=== PATIENT | male | born 1975 | race Caucasian/White ===

== ENCOUNTER 2017-01-01 08:10 | Emergency (ER) | payer MEDICAID, OTHER ==
[~2017-01-01] VITALS: Ht 167.6 cm; Wt 66.0 kg
[2017-01-01 08:14] VITALS: Ht 167.6 cm; Wt 66.0 kg
--- NOTE | 2017-01-01 09:14 | RADRPT ---
PROCEDURE: Chest x-ray CLINICAL INDICATION: Pain. TECHNIQUE: Two views: Frontal and lateral. COMPARISON: None FINDINGS: The cardiac silhouette is normal. No infiltrates are noted. The hilar regions are unremarkable. No pneumothorax or pleural effusions are visualized. 3 mm granuloma in the right upper lobe is noted. IMPRESSION: 1. No active cardiopulmonary changes. 2. Old granulomatous disease. RPTAT: HH .Dada Madrigal MD, MD Date Time Electronically viewed and signed by .Dada Madrigal MD, on 01/01/2017 09:14 .G/
--- NOTE | 2017-01-01 09:17 | ERD ---
ER Documentation Chief Complaint Date/Time DATE: 01/01/17 TIME: 09:16 Chief Complaint pt c/o cough and feeling sob x 1 wk, hx asthma HPI This is a 41-year-old male with a history of asthma presenting to the emergency room complaining of cough, shortness of breath, chest pain, nasal congestion for the past few days. Patient denies any fevers. He denies taking any medications. Patient denies any drug use or alcohol use. Patient states that the chest pain is localized in the center, it is nonradiating and he rates it mild in severity.He denies recent traveling, recent surgeries. ROS All systems reviewed and are negative except as per history of present illness. Medications Home Meds Active Scripts Benzonatate* (Tessalon Perle*) 100 Mg Capsule, 100 MG PO TID, #20 CAP Prov:RONALDO WEAVER PA-C 01/01/17 Albuterol Sulfate* (Ventolin HFA*) 18 Gm Hfa.aer.ad, 2 PUFF INHALATION Q4H, #1 INHALER Prov:RONALDO WEAVER PA-C 01/01/17 Ibuprofen* (Ibuprofen*) 600 Mg Tablet, 600 MG PO Q6H Y for PAIN, #30 TAB Prov:RONALDO WEAVER PA-C 01/01/17 Allergies Allergies: Coded Allergies: No Known Allergy (Unverified , 01/01/17) PMhx/Soc Hx Respiratory Disorders: Yes (ASTHMA) Hx Alcohol Use: Yes (OCCASIONALLY) Hx Substance Use: No Hx Tobacco Use: No Smoking Status: Never smoker Physical Exam Vitals Vital Signs Date Time Temp Pulse Resp B/P Pulse Ox O2 Delivery O2 Flow Rate FiO2 01/01/17 10:40 98.2 98 20 128/80 96 Room Air 01/01/17 08:14 98.1 140 20 133/84 95 Physical Exam GENERAL: well-developed/well-nourished, in no apparent distress, non-toxic appearing HEAD: NC/AT, no swelling noted in frontal or maxillary areas EARS: bilateral tympanic membrane is intact without erythema or effusion NARES: congested THROAT: oropharynx non-erythematous without exudates, no tonsil enlargement EYES: Conjunctiva normal NECK: Supple, no lymphadenopathy PULM: CTA bilaterally, no rales, rhonchi, or wheezing heard CV: Normal S1S2, tachycardia, good capillary refill GI: Soft, non-distended, normal bowel sounds, non-tender BACK: No midline tenderness, no masses EXT No clubbing, cyanosis, or edema NEURO: Alert and Orientated SKIN: Intact, normal turgor PSYCH: Normal mood and mentation Result Diagram: 01/01/17 0859 01/01/17 0859 Results 24 hrs Laboratory Tests Test 01/01/17 08:59 Alanine Aminotransferase (ALT/SGPT) 57IU/L Albumin 4.5g/dl Albumin/Globulin Ratio 1.32 Alkaline Phosphatase 127IU/L Anion Gap 19 Aspartate Amino Transf (AST/SGOT) 85IU/L Basophils # 0.110^3/ul Basophils % 0.9% Blood Urea Nitrogen 10mg/dl Calcium Level 8.9mg/dl Carbon Dioxide Level 27mmol/L Chloride Level 98mmol/L Creatinine 0.62mg/dl D-Dimer < 220.00ng/ml D-Dimer Comment Direct Bilirubin 0.00mg/dl Eosinophils # 0.810^3/ul Eosinophils % 12.6% Globulin 3.40g/dl Glucose Level 93mg/dl Hematocrit 43.5% Hemoglobin 15.3g/dl Indirect Bilirubin 1.5mg/dl Lipase 132U/L Lymphocytes # 1.210^3/ul Lymphocytes % 18.8% Mean Corpuscular Hemoglobin 32.5pg Mean Corpuscular Hemoglobin Concent 35.2g/dl Mean Corpuscular Volume 92.4fl Mean Platelet Volume 9.4fl Monocytes # 0.410^3/ul Monocytes % 6.4% Neutrophils # 4.010^3/ul Neutrophils % 61.0% Nucleated Red Blood Cells # 0.010^3/ul Nucleated Red Blood Cells % 0.0/100WBC Platelet Count 97088^3/UL Potassium Level 3.9mmol/L Red Blood Count 4.7110^6/ul Red Cell Distribution Width 11.9% Sodium Level 140mmol/L Total Bilirubin 1.5mg/dl Total Protein 7.9g/dl Troponin I < 0.012ng/ml White Blood Count 6.610^3/ul PROCEDURE: Chest x-ray CLINICAL INDICATION: Pain. TECHNIQUE: Two views: Frontal and lateral. COMPARISON: None FINDINGS: The cardiac silhouette is normal. No infiltrates are noted. The hilar regions are unremarkable. No pneumothorax or pleural effusions are visualized. 3 mm granuloma in the right upper lobe is noted. IMPRESSION: 1. No active cardiopulmonary changes. 2. Old granulomatous disease. RPTAT: HH .Dada Madrigal MD, MD Date Time Electronically viewed and signed by .Dada Madrigal MD, on 01/01/2017 09: 14 .G/ CC: RONALDO WEAVER PA-C Procedures/[facility] This is a 41-year-old male with a history of asthma presenting to the emergency room complaining of cough, shortness of breath, chest pain for the past few days. My differentials include but not limited to viral upper respiratory illness, asthma exacerbation, anxiety, and other acute cardiopulmonary conditions. On examination patient appeared anxious, patient's lungs were clear to auscultation bilaterally, there was no evidence of respiratory distress. Patient did have evidence of sinus tachycardia. No wheezing on examination. Lab work was done in the ED. CBC did not show any evidence of leukocytosis or anemia. CMP was unremarkable for any significant electrolyte, liver or renal abnormalities. Troponin was negative. D-dimer was unremarkable. I will low suspicion for ACS and pulmonary embolism. Chest x- ray did not show any evidence of pneumonia, pleural effusion or pneumothorax. The radiologist stated that there is old granulomatous disease, I have discussed with the patient that he needs to follow-up with his primary care physician for further management regarding diagnostic testing. An EKG was done in the ER and was unremarkable for acute ischemia or STEMI, patient did have sinus tachycardia. Patient is suitable to follow-up with primary care physician , he is to return to the ER for any worsening signs or symptoms. He understands and agrees with this plan CXR read by radiologist: 1. No active cardiopulmonary changes. 2. Old granulomatous disease. EKG: read and signed off by myself and Rate/Rhythm: Sinus tachycardia at 116bpm QRS, ST, T-waves: No changes consistent w/ acute ischemia Impression: No evidence of ischemia or arrhythmia Prescription for Tessalon Perles, ibuprofen and Ventolin was provided. Departure Diagnosis: Primary Impression: Cough Additional Impression: Shortness of breath Condition: Fair RONALDO WEAVER PA-C Jan 01, 2017 09:17
[2017-01-01 09:28] LABS: ALBUMIN 4.5 g/dl (3.3-4.9)
[2017-01-01 09:29] LABS: CHLORIDE 98 mmol/L (97-110); POTASSIUM 3.9 mmol/L (3.5-5.1); SODIUM 140 mmol/L (135-144)
[2017-01-01 09:31] LABS: ANION GAP 19 (8-16); ASPARTATE AMINO TRANSFERASE 85 IU/L (15-46); BILIRUBIN,INDIRECT 1.5 mg/dl (0-1.1); BILIRUBIN,TOTAL 1.5 mg/dl (0.2-1.3); CARBON DIOXIDE 27 mmol/L (21-31); CREATININE 0.62 mg/dl (0.61-1.24)
[2017-01-01 09:32] LABS: ALANINE AMINOTRANSFERASE 57 IU/L (13-69); ALBUMIN/GLOBULIN RATIO 1.32; ALKALINE PHOSPHATASE 127 IU/L (42-121); BLOOD UREA NITROGEN 10 mg/dl (7-20); CALCIUM 8.9 mg/dl (8.4-10.2); GLUCOSE 93 mg/dl (70-220); TOTAL PROTEIN 7.9 g/dl (6.1-8.1)
[2017-01-01 09:44] LABS: TROPONIN-I < 0.012 ng/ml (0.00-0.12)
[2017-01-01 10:25] LABS: BASOPHILS % 0.9 % (0.0-2.0); D-DIMER < 220.00 ng/ml (<460); EOSINOPHILS % 12.6 % (0.0-7.0); HEMATOCRIT 43.5 % (42.0-52.0); HEMOGLOBIN 15.3 g/dl (14.0-18.0); LYMPHOCYTES % 18.8 % (15.0-51.0); MEAN CORPUSCULAR HEMOGLOBIN 32.5 pg (29.0-33.0); MEAN CORPUSCULAR HGB CONC 35.2 g/dl (32.0-37.0); MEAN CORPUSCULAR VOLUME 92.4 fl (82.0-101.0); MEAN PLATELET VOLUME 9.4 fl (7.4-10.4); MONOCYTES % 6.4 % (0.0-11.0); PLATELET COUNT 261 10^3/UL (140-440); RED BLOOD COUNT 4.71 10^6/ul (4.70-6.10); RED CELL DISTRIBUTION WIDTH 11.9 % (11.5-14.5); WHITE BLOOD COUNT 6.6 10^3/ul (4.8-10.8)
[2017-01-01 10:26] LABS: BASOPHIL # 0.1 10^3/ul (0.0-0.1); EOSINOPHILS # 0.8 10^3/ul (0.0-0.5); LYMPHOCYTES # 1.2 10^3/ul (0.8-2.9); MONOCYTE # 0.4 10^3/ul (0.3-0.9)
[2017-01-01] MEDS ORDERED: ALBU18HF INHALATION (10:34)
[2017-01-01] MEDS ORDERED: BENZ100C70 PO (10:34)
[2017-01-01] MEDS ORDERED: IBUP-1542 PO (10:34)
[2017-01-01 10:40] VITALS: BP 128/80; PULSE 98; RESP 20; TEMP 98.2
== END 2017-01-01 10:40 | disposition home or self-care (01) ==
LOC: FTE 08:10
DX: R05 Cough (principal); J45.909 Unspecified asthma, uncomplicated
CPT/HCPCS: 71020; 80053; 83690; 84484; 85025; 85378; 93005

== ENCOUNTER 2017-09-26 06:32 | Emergency (ER) | payer MEDICAID, OTHER ==
[~2017-09-26] VITALS: Ht 167.6 cm; Wt 53.0 kg
[~2017-09-26 06:32] MED LIST: ALBU18HF INHALATION; BENZ100C70 PO; IBUP-1542 PO
[2017-09-26 06:34] VITALS: Ht 167.6 cm; Wt 53.0 kg
[2017-09-26] MEDS ORDERED: LORAZEPAM 2 MG INJ IV STA (06:50)
[2017-09-26] MEDS ORDERED: MAGNESIUM SULFATE 2 GM, MULTIVITAMINS 10 ML, THIAMINE 100 MG, FOLIC ACID 1 MG in SOD CH... IV STA (06:50)
[2017-09-26 07:27] LABS: BASOPHILS % 0.7 % (0.0-2.0); EOSINOPHILS % 0.2 % (0.0-7.0); HEMATOCRIT 43.8 % (42.0-52.0); HEMOGLOBIN 15.2 g/dl (14.0-18.0); LYMPHOCYTES # 0.9 10^3/ul (0.8-2.9); MEAN CORPUSCULAR HEMOGLOBIN 34.2 pg (29.0-33.0); MEAN CORPUSCULAR HGB CONC 34.7 g/dl (32.0-37.0); MEAN CORPUSCULAR VOLUME 98.6 fl (82.0-101.0); MEAN PLATELET VOLUME 8.9 fl (7.4-10.4); MONOCYTE # 0.6 10^3/ul (0.3-0.9); MONOCYTES % 10.3 % (0.0-11.0); NEUTROPHILS % 72.4 % (39.0-77.0); PLATELET COUNT 241 10^3/UL (140-415); RED BLOOD COUNT 4.44 10^6/ul (4.70-6.10); WHITE BLOOD COUNT 5.5 10^3/ul (4.8-10.8)
--- NOTE | 2017-09-26 07:27 | ERD ---
ER Documentation Chief Complaint Chief Complaint etoh withdrawal, shaking, last drink last night at 2200. unable to sleep HPI This is a 41-year-old male with a known history of alcohol abuse who presents to the emergency department stating he is feeling symptoms of withdrawal as he has been unable to sleep for 10 hours, feels very shaky, nauseous and indicates that his last consumption of alcohol was 8 hours prior to arrival. The patient denies any recent remote head trauma. He denies any hemoptysis hematemesis or melanotic stools. He has no history of delirium tremors or alcohol withdrawal seizures. He denies any other illicit drug use. He does not take any medications Have any past medical history other than alcohol use. He denies any diarrhea or constipation. He denies a headache or changes in vision. Denies any chest pain or pressure that radiates to the neck arm back or jaw no shortness of breath at rest or exertion ROS All systems reviewed and are negative except as per history of present illness. Medications Home Meds Active Scripts Chlordiazepoxide* (Chlordiazepoxide*) 25 Mg Capsule, 25 MG PO Q8 Y for CONTROL WITHDRAWAL SYMPTOMS, #10 CAP Prov:CARINA HUTCHISON 09/26/17 Benzonatate* (Tessalon Perle*) 100 Mg Capsule, 100 MG PO TID, #20 CAP Prov:RONALDO WEAVER PA-C 01/01/17 Albuterol Sulfate* (Ventolin HFA*) 18 Gm Hfa.aer.ad, 2 PUFF INHALATION Q4H, #1 INHALER Prov:RONALDO WEAVER PA-C 01/01/17 Ibuprofen* (Ibuprofen*) 600 Mg Tablet, 600 MG PO Q6H Y for PAIN, #30 TAB Prov:RONALDO WEAVER PA-C 01/01/17 Allergies Allergies: Coded Allergies: No Known Allergy (Unverified , 01/01/17) PMhx/Soc Hx Respiratory Disorders: Yes (ASTHMA) Hx Alcohol Use: Yes (OCCASIONALLY) Hx Substance Use: No Hx Tobacco Use: No Physical Exam Vitals Vital Signs Date Time Temp Pulse Resp B/P Pulse Ox O2 Delivery O2 Flow Rate FiO2 09/26/17 08:00 113 22 150/97 99 Room Air 09/26/17 06:34 97.3 134 20 166/89 100 Physical Exam Constitutional:Well-developed. Well-nourished. HEENT:Normocephalic. Atraumatic.Pupils were equal round reactive to light. Dry mucous membranes.No tonsillar exudates. No nasal septal hematoma. No hemotympanum Neck: No nuchal rigidity. No lymphadenopathy. No posterior cervical spine tenderness or step-offs. Respiratory: Not using accessory muscles of respiration.Lungs were clear to auscultation bilaterally. No rhonchi. No rales. No wheezing. Cardiovascular: Tachycardic with regular rhythm.No murmurs. No rubs were appreciated.S1, S2 normal. Distal pulses are palpable 2+ bilaterally. GI: Abdomen was soft. Nontender. Non Distended. No pulsatile abdominal masses or bruits. No rebound. No guarding. Bowel sounds were present and normal. Muscle skeletal: Full range of motion of both the upper and lower extremities bilaterally.Normal muscle tone.No assymetrical calf tenderness or swelling. Skin: No petechia, no purpura. No lesions on the palms or the soles of the feet. No maculopapular rash. NEURO: Patient was alert, awake, orientated x3 no delirium. No facial droop. Gait observed and normal with no ataxia.Speech had regular rate and rhythm. No focal neurological deficits. Asterix[place]. Result Diagram: 09/26/17 0715 09/26/17 0715 Results 24 hrs Laboratory Tests Test 09/26/17 07:15 White Blood Count 5.510^3/ul Red Blood Count 4.4410^6/ul Hemoglobin 15.2g/dl Hematocrit 43.8% Mean Corpuscular Volume 98.6fl Mean Corpuscular Hemoglobin 34.2pg Mean Corpuscular Hemoglobin Concent 34.7g/dl Red Cell Distribution Width 12.0% Platelet Count 67095^3/UL Mean Platelet Volume 8.9fl Neutrophils % 72.4% Lymphocytes % 16.0% Monocytes % 10.3% Eosinophils % 0.2% Basophils % 0.7% Nucleated Red Blood Cells % 0.0/100WBC Neutrophils # 4.010^3/ul Lymphocytes # 0.910^3/ul Monocytes # 0.610^3/ul Eosinophils # 0.010^3/ul Basophils # 0.010^3/ul Nucleated Red Blood Cells # 0.010^3/ul Activated Partial Thromboplast Time 26.1Sec Sodium Level 139mmol/L Potassium Level 3.7mmol/L Chloride Level 96mmol/L Carbon Dioxide Level 26mmol/L Anion Gap 21 Blood Urea Nitrogen 11mg/dl Creatinine 0.68mg/dl Glucose Level 123mg/dl Calcium Level 9.5mg/dl Total Bilirubin 1.2mg/dl Direct Bilirubin 0.00mg/dl Indirect Bilirubin 1.2mg/dl Aspartate Amino Transf (AST/SGOT) 249IU/L Alanine Aminotransferase (ALT/SGPT) 151IU/L Alkaline Phosphatase 98IU/L Total Protein 8.6g/dl Albumin 5.4g/dl Globulin 3.20g/dl Albumin/Globulin Ratio 1.68 Amylase Level 78U/L Lipase 199U/L Ethyl Alcohol Level < 10.0mg/dl Current Medications Medications (Trade) Dose Ordered Sig/Jalen Route PRN Reason Start Time Stop Time Status Last Admin Dose Admin Magnesium Sulfate/ Multivitamins/ Thiamine HCl/ Folic Acid/Sodium Chloride (Magnesium Sulfate/Mvi Adult/ Vitamin B1/Folic Acid/NS) 1,015.2 ml @ 500 mls/ hr Q2H2M STAT IV 09/26/17 06:50 09/26/17 07:44 DC Lorazepam (Ativan) 1 mg ONCE STAT IV 09/26/17 06:50 09/26/17 06:51 DC 09/26/17 08:00 Chlordiazepoxide 50 mg 50 mg ONCE ONCE PO 09/26/17 07:30 09/26/17 07:37 DC 09/26/17 07:59 Magnesium Sulfate/ Multivitamins/ Thiamine HCl/ Sodium Chloride (Magnesium Sulfate/Mvi Adult/ Vitamin B1/NS) 1,015 ml @ 500 mls/hr Q2H2M STAT IV 09/26/17 07:44 09/26/17 08:51 DC 09/26/17 07:51 Folic Acid (Folic Acid) 1 mg ONCE ONCE PO 09/26/17 08:00 09/26/17 08:01 DC Procedures/MDM This patient presented to the emergency department physical exam findings of alcohol withdrawal. In order to prevent complications such as delirium tremors the patient was placed on a systems technician with continuous pulse oximetry and IV access was established by nursing staff. The patient received a banana bag which included folic acid thiamine and multivitamin. He also was given IV Ativan and p.o. Librium. She had complete resolution of his symptoms. The patient had a serum ethanol that was undetected. The patient did not have any signs of impending delirium tremors. He was seen by her social service technician and given outpatient resources for alcohol and drug rehabilitation rehab programs. The patient was discharged home in fair condition. They were instructed to return to the emergency department at any time if there was any worsening of their condition. The patient stated they would follow up with their PCP in the next 24-48 hours to initiate a suitable medication regimen under the care of their PCP as well as to allow their PCP to monitor any drug reactions. The patient was discharged home with prescriptions after they gave informed consent to the new medication. They were also fully informed by myself on the adverse effects and adverse drug interactions in order to provide adequate safeguards to prevent possible adverse reactions to medications. Departure Diagnosis: Primary Impression: Alcohol withdrawal syndrome Complication of substance-induced condition: uncomplicated Qualified Code: F10.230 - Alcohol withdrawal syndrome without complication Condition: CARINA Gaston Sep 26, 2017 07:27
[2017-09-26] MEDS ORDERED: CHLORDIAZEPOXIDE 25 MG CAP PO ONE (07:30)
[2017-09-26] MEDS ORDERED: MAGNESIUM SULFATE 2 GM, MULTIVITAMINS 10 ML, THIAMINE 100 MG in SOD CHLORIDE 0.9% 1,000 ML IV STA (07:44)
[2017-09-26 07:49] LABS: AMYLASE 78 U/L (11-123)
[2017-09-26 07:51] LABS: ALANINE AMINOTRANSFERASE 151 IU/L (13-69); ALBUMIN 5.4 g/dl (3.3-4.9); ALBUMIN/GLOBULIN RATIO 1.68; ALKALINE PHOSPHATASE 98 IU/L (42-121); ANION GAP 21 (8-16); ASPARTATE AMINO TRANSFERASE 249 IU/L (15-46); BILIRUBIN,INDIRECT 1.2 mg/dl (0-1.1); BILIRUBIN,TOTAL 1.2 mg/dl (0.2-1.3); BLOOD UREA NITROGEN 11 mg/dl (7-20); CALCIUM 9.5 mg/dl (8.4-10.2); CARBON DIOXIDE 26 mmol/L (21-31); CHLORIDE 96 mmol/L (97-110); CREATININE 0.68 mg/dl (0.61-1.24); GLUCOSE 123 mg/dl (70-220); POTASSIUM 3.7 mmol/L (3.5-5.1); SODIUM 139 mmol/L (135-144); TOTAL PROTEIN 8.6 g/dl (6.1-8.1)
[2017-09-26] MEDS ORDERED: FOLIC ACID 1 MG TAB PO ONE (08:00)
[2017-09-26 08:04] LABS: ETHANOL < 10.0 mg/dl
[2017-09-26] MEDS ORDERED: CHLO25CA9 PO (10:04)
[2017-09-26 10:17] VITALS: BP 140/89; PULSE 99; RESP 22
== END 2017-09-26 10:18 | disposition home or self-care (01) ==
LOC: E/R 06:32
DX: F10.230 Alcohol dependence with withdrawal, uncomplicated (principal); R40.2252 Coma scale, best verbal response, oriented, at arrival to emergency department; R40.2142 Coma scale, eyes open, spontaneous, at arrival to emergency department; R40.2362 Coma scale, best motor response, obeys commands, at arrival to emergency department; J45.909 Unspecified asthma, uncomplicated; R07.9 Chest pain, unspecified
CPT/HCPCS: 36415; 80053; 80306; 82150; 83690; 85025; 85730; 96374; 96375; J2060; J3411; J3475; J7030; Z7502; Z7610

== ENCOUNTER 2017-10-12 15:19 | Emergency (ER) | payer MEDICAID, OTHER ==
[~2017-10-12] VITALS: Ht 157.5 cm; Wt 57.2 kg
[~2017-10-12 15:19] MED LIST changes: +CHLO25CA9 PO
[2017-10-12 15:21] VITALS: Ht 157.5 cm; Wt 57.2 kg
[2017-10-12 17:48] LABS: ADD UMIC NO; UR ASCORBIC ACID NEGATIVE (NEGATIVE); UR BILIRUBIN (Dip) NEGATIVE (NEGATIVE); UR BLOOD (Dip) NEGATIVE (NEGATIVE); UR CLARITY CLEAR (CLEAR); UR COLOR STRAW (YELLOW); UR GLUCOSE (Dip) NEGATIVE (NEGATIVE); UR KETONES (Dip) NEGATIVE (NEGATIVE); UR LEUKOCYTE ESTERASE (Dip) NEGATIVE Leu/ul (NEGATIVE); UR NITRITE (Dip) NEGATIVE (NEGATIVE); UR SPECIFIC GRAVITY (Dip) 1.001 (1.003-1.030); UR TOTAL PROTEIN (Dip) NEGATIVE (NEGATIVE); UR UROBILINOGEN (Dip) NEGATIVE (NEGATIVE)
--- NOTE | 2017-10-12 18:12 | ERD ---
ER Documentation Chief Complaint Chief Complaint PAIN WITH URINATION HPI This is a 41-year-old male presents to the emergency room for evaluation of frequent urination. He denies any painful urination, denies any nasal discharge and came to the ER for evaluation. The patient does state that he drinks alcohol daily and states that he has no other medical problems except for an enlarged liver. ROS All systems reviewed and are negative except as per history of present illness. Medications Home Meds Active Scripts Chlordiazepoxide* (Chlordiazepoxide*) 25 Mg Capsule, 25 MG PO Q8 Y for CONTROL WITHDRAWAL SYMPTOMS, #10 CAP Prov:CARINA HUTCHISON 09/26/17 Benzonatate* (Tessalon Perle*) 100 Mg Capsule, 100 MG PO TID, #20 CAP Prov:RONALDO WEAVER PA-C 01/01/17 Albuterol Sulfate* (Ventolin HFA*) 18 Gm Hfa.aer.ad, 2 PUFF INHALATION Q4H, #1 INHALER Prov:RONALDO WEAVER PA-C 01/01/17 Ibuprofen* (Ibuprofen*) 600 Mg Tablet, 600 MG PO Q6H Y for PAIN, #30 TAB Prov:RONALDO WEAVER PA-C 01/01/17 Allergies Allergies: Coded Allergies: No Known Allergy (Unverified , 01/01/17) PMhx/Soc Hx Respiratory Disorders: Yes (ASTHMA) Hx Alcohol Use: Yes (daily) Hx Substance Use: No Hx Tobacco Use: No Smoking Status: Never smoker Physical Exam Vitals Vital Signs Date Time Temp Pulse Resp B/P Pulse Ox O2 Delivery O2 Flow Rate FiO2 10/12/17 15:21 98.1 71 16 132/80 99 Physical Exam Const: No acute distress Head: Atraumatic Eyes: Normal Conjunctiva ENT: Normal External Ears, Nose and Mouth. Neck: Full range of motion..~ No meningismus. Resp: Clear to auscultation bilaterally Cardio: Regular rate and rhythm, no murmurs Abd: Soft, non tender, non distended. Normal bowel sounds Skin: No petechiae or rashes Back: No midline or flank tenderness Ext: No cyanosis, or edema Neur: Awake and alert Psych: Normal Mood and Affect Results 24 hrs Laboratory Tests Test 10/12/17 17:02 Urine Color STRAW Urine Clarity CLEAR Urine pH 6.0 Urine Specific [place] 1.001 Urine Ketones NEGATIVEmg/dL Urine Nitrite NEGATIVEmg/dL Urine Bilirubin NEGATIVEmg/dL Urine Urobilinogen NEGATIVEmg/dL Urine Leukocyte Esterase NEGATIVELeu/ul Urine Hemoglobin NEGATIVEmg/dL Urine Glucose NEGATIVEmg/dL Urine Total Protein NEGATIVEmg/dl Procedures/MDM This 41-year-old presents to the ER for evaluation of frequent urination. This patient was concerned that he could have a urinary tract infection. He denies any urethral discharge. A urinalysis was obtained and does not show any signs of a white blood cells, nitrite negative and leukocyte esterase negative. The patient was advised that he does not have a urine tract infection at this time. I did state that urine culture was obtained and we will call him if his urine culture does show any signs of any bacterial growth. The patient is okay to plan of care and verbalized understanding. He has no flank pain, is afebrile in no acute distress. He will be discharged at this time. Departure Diagnosis: Primary Impression: Urinary frequency Additional Impression: Alcohol abuse Condition: Stable ANGELITA ZALDIVAR DO Oct 12, 2017 18:12
== END 2017-10-12 18:50 | disposition home or self-care (01) ==
LOC: FTE 15:19
DX: R35.0 Frequency of micturition (principal); F10.10 Alcohol abuse, uncomplicated; J45.909 Unspecified asthma, uncomplicated
CPT/HCPCS: 81003; 87086; Z7502; 99283

== ENCOUNTER 2017-10-28 07:08 | Emergency (ER) | payer MEDICAID ==
[~2017-10-28] VITALS: Ht 162.6 cm; Wt 55.2 kg
[2017-10-28 07:10] VITALS: Ht 162.6 cm; Wt 55.2 kg
--- NOTE | 2017-10-28 08:06 | ERD ---
ER Documentation Chief Complaint Chief Complaint Pt presents with intermittent RUQ AP and insomnia X 3 months. HPI 41-year-old male, with history of alcohol abuse, presents to the emergency department complaining of persistent right upper quadrant pain for the last 2 months after he quit drinking. The pain is described as colicky, intermittent, 5/10. He has not tried any medications at this time and he is concerned about the alcohol damage on his liver he is requesting blood work and ultrasound. Denies fevers, chills, jaundice, no diarrhea, vomiting, no rectal bleeding. ROS All systems reviewed and are negative except as per history of present illness. Medications Home Meds Active Scripts Ranitidine Hcl* (Zantac*) 150 Mg Tablet, 150 MG PO BID Y for EPIGASTRIC PAIN, # 30 TAB Prov:MAGALY UPTON MD 10/28/17 Chlordiazepoxide* (Chlordiazepoxide*) 25 Mg Capsule, 25 MG PO Q8 Y for CONTROL WITHDRAWAL SYMPTOMS, #10 CAP Prov:CARINA HUTCHISON 09/26/17 Benzonatate* (Tessalon Perle*) 100 Mg Capsule, 100 MG PO TID, #20 CAP Prov:RONALDO WEAVER PA-C 01/01/17 Albuterol Sulfate* (Ventolin HFA*) 18 Gm Hfa.aer.ad, 2 PUFF INHALATION Q4H, #1 INHALER Prov:RONALDO WEAVER PA-C 01/01/17 Ibuprofen* (Ibuprofen*) 600 Mg Tablet, 600 MG PO Q6H Y for PAIN, #30 TAB Prov:RONALDO WEAVER PA-C 01/01/17 Allergies Allergies: Coded Allergies: No Known Allergy (Unverified , 01/01/17) PMhx/Soc Hx Respiratory Disorders: Yes (ASTHMA) Hx Alcohol Use: Yes (daily) Hx Substance Use: No Hx Tobacco Use: No Physical Exam Vitals Vital Signs Date Time Temp Pulse Resp B/P Pulse Ox O2 Delivery O2 Flow Rate FiO2 10/28/17 07:10 98.6 96 18 151/68 99 Physical Exam Const: Alert, oriented, no distress Head: Atraumatic Eyes: Normal Conjunctiva ENT: Normal External Ears, Nose and Mouth. Neck: Full range of motion..~ No meningismus. Resp: Clear to auscultation bilaterally Cardio: Regular rate and rhythm, no murmurs Abd: Soft, mild tenderness right upper quadrant, non distended. Normal bowel sounds Skin: No petechiae or rashes Back: No midline or flank tenderness Ext: No cyanosis, or edema Neur: Awake and alert Psych: Normal Mood and Affect Result Diagram: 10/28/17 0822 10/28/17 0822 Results 24 hrs Laboratory Tests Test 10/28/17 08:22 White Blood Count 4.910^3/ul Red Blood Count 4.4910^6/ul Hemoglobin 14.9g/dl Hematocrit 43.0% Mean Corpuscular Volume 95.8fl Mean Corpuscular Hemoglobin 33.2pg Mean Corpuscular Hemoglobin Concent 34.7g/dl Red Cell Distribution Width 11.2% Platelet Count 20908^3/UL Mean Platelet Volume 9.1fl Neutrophils % 59.6% Lymphocytes % 27.3% Monocytes % 9.2% Eosinophils % 2.9% Basophils % 0.8% Nucleated Red Blood Cells % 0.0/100WBC Neutrophils # 2.910^3/ul Lymphocytes # 1.310^3/ul Monocytes # 0.510^3/ul Eosinophils # 0.110^3/ul Basophils # 0.010^3/ul Nucleated Red Blood Cells # 0.010^3/ul Sodium Level 139mmol/L Potassium Level 3.9mmol/L Chloride Level 102mmol/L Carbon Dioxide Level 26mmol/L Anion Gap 15 Blood Urea Nitrogen 6mg/dl Creatinine 0.64mg/dl Glucose Level 107mg/dl Calcium Level 9.4mg/dl Total Bilirubin 2.2mg/dl Direct Bilirubin 0.00mg/dl Indirect Bilirubin 2.2mg/dl Aspartate Amino Transf (AST/SGOT) 74IU/L Alanine Aminotransferase (ALT/SGPT) 66IU/L Alkaline Phosphatase 86IU/L Total Protein 8.1g/dl Albumin 4.8g/dl Globulin 3.30g/dl Albumin/Globulin Ratio 1.45 [place] [id number] Radiology Main Line: [phone] DIAGNOSTIC IMAGING REPORT Patient: MICHAEL CRUZ : 1975 Age: 41 Sex: M [id number] DOS: 10/28/17 0811 Ordering MD: MAGALY UPTON MD Location: [facility] Room/Bed: PROCEDURE: US Abdomen. CLINICAL INDICATION: abdominal pain TECHNIQUE: Multiple real-time images were acquired of the patient's right upper quadrant abdomen and retroperitoneum utilizing a high resolution transducer. COMPARISON: None FINDINGS: The liver demonstrates increased echogenicity. The liver is normal in size and no focal solid lesions are seen. The liver measures 15.5 cm in length. The portal vein is patent with normal direction of flow. No intrahepatic biliary dilatation is seen. No gallstones are identified within the gallbladder. There is no pericholecystic fluid or gallbladder wall thickening. The common bile duct measures 3 mm in maximal dimension. The visualized portions of the pancreas are unremarkable. The tail of the pancreas is not seen. No free fluid is identified. The right kidney is normal in size, and demonstrate normal echogenicity and cortical thickness. The right kidney measures 11.1 cm in long dimension. There is no evidence of hydronephrosis. There are no kidney stones. RPTAT: AA IMPRESSION: Diffuse fatty infiltration of the liver. No evidence of gallstones. .Jayesh Chacko MD, MD Date Time Electronically viewed and signed by .Jayesh Chacko MD, MD on 10/28/2017 08: 53 .S/ CC: MAGALY UPTON MD Procedures/MDM 41y/o male patient with history of alcohol abuse, presents to the ED c/o right upper quadrant pain for 2 months. Vital signs stable, Physical exam unremarkable except for mild tenderness in right upper quadrant, no peritoneal signs. Differential diagnosis include but not limited to: UTI, colitis, gastroenteritis, kidney stones, irritable bowel syndrome, inflammatory bowel syndrome, malabsorption syndrome, cholelithiasis, food intolerance, medication side effect, pancreatitis, diverticulitis, bowel obstruction. Low suspicion for acute abdomen Pertinent Data: Labs: CBC: normal, CMP: Mild abnormal liver function, normal electrolytes. Lipase: normal Radiology: Liver ultrasound: Fatty liver. Physical examination and clinical presentation consistent most likely with abdominal pain secondary to gastritis without evidence of acute abdomen. During the ED course the patient remained stable, no new complaints. Results and clinical impression discussed with patient who agrees with management. The patient is stable to be treated outpatient and will be discharged home with a Rx for ranitidine. Side effects of prescribed medications (headache, rash, nausea, vomiting, diarrhea) were reviewed. The patient was instructed to follow up with the primary care provider in the next 48h. If symptoms persist, worsen or new symptoms develop, then patient should return to the ED immediately. Instructions explained and given to patient in Swedish with acknowledgment and demonstrated understanding. Disclaimer: Inadvertent spelling and grammatical errors are likely due to EHR/ dictation software use and do not reflect on the overall quality of patient care. Also, please note that the electronic time recorded on this note does not necessarily reflect the actual time of the patient encounter. Departure Diagnosis: Primary Impression: Abdominal pain Condition: Stable Additional Instructions: Muchas jacqui por [facility] para arthur servicio. Esperamos que en arthur visita a la key de emergencia arthur problema medico haya sido solucionado y que se sienta mucho mejor. Para estar seguros que arthur mejoria sigue en proceso, le pedimos el favor de hacer adolph clovis de seguimiento medico con arthur doctor primario en los proximos 2-4 anaya. Lleve con usted estos documentos y las medicinas recetadas. Si margarita sintomas empeoran y no puede milton a arthur doctor, por favor regrese a key de emergencia. En zoe que usted no tenga un mdico de atencin primaria: Llame al mdico o clnica comunitaria de referencia que aparece abajo anshul las horas de consultorio para hacer adolph clovis para que le vean. CLINICAS: [facility] [phone] [facility] [phone] [facility] [phone] [facility] [phone] [facility] [phone] [facility]. [phone] MAGALY GUZMÁN MD Oct 28, 2017 08:06
[2017-10-28 08:40] LABS: BASOPHILS % 0.8 % (0.0-2.0); EOSINOPHILS # 0.1 10^3/ul (0.0-0.5); EOSINOPHILS % 2.9 % (0.0-7.0); HEMOGLOBIN 14.9 g/dl (14.0-18.0); LYMPHOCYTES # 1.3 10^3/ul (0.8-2.9); LYMPHOCYTES % 27.3 % (15.0-51.0); MEAN CORPUSCULAR HEMOGLOBIN 33.2 pg (29.0-33.0); MEAN CORPUSCULAR HGB CONC 34.7 g/dl (32.0-37.0); MEAN CORPUSCULAR VOLUME 95.8 fl (82.0-101.0); MEAN PLATELET VOLUME 9.1 fl (7.4-10.4); MONOCYTE # 0.5 10^3/ul (0.3-0.9); MONOCYTES % 9.2 % (0.0-11.0); NEUTROPHIL # 2.9 10^3/ul (1.6-7.5); NEUTROPHILS % 59.6 % (39.0-77.0); PLATELET COUNT 210 10^3/UL (140-415); RED BLOOD COUNT 4.49 10^6/ul (4.70-6.10); RED CELL DISTRIBUTION WIDTH 11.2 % (11.5-14.5); WHITE BLOOD COUNT 4.9 10^3/ul (4.8-10.8)
--- NOTE | 2017-10-28 08:53 | RADRPT ---
PROCEDURE: US Abdomen. CLINICAL INDICATION: abdominal pain TECHNIQUE: Multiple real-time images were acquired of the patient's right upper quadrant abdomen a nd retroperitoneum utilizing a high resolution transducer. COMPARISON: None FINDINGS: The liver demonstrates increased echogenicity. The liver is normal in size and no focal solid lesio ns are seen. The liver measures 15.5 cm in length. The portal vein is patent with normal direction o f flow. No intrahepatic biliary dilatation is seen. No gallstones are identified within the gallbladder. There is no pericholecystic fluid or gallbladd er wall thickening. The common bile duct measures 3 mm in maximal dimension. The visualized portions of the pancreas are unremarkable. The tail of the pancreas is not seen. No free fluid is identified. The right kidney is normal in size, and demonstrate normal echogenicity and cortical thickness. The right kidney measures 11.1 cm in long dimension. There is no evidence of hydronephrosis. There are no kidney stones. RPTAT: AA IMPRESSION: Diffuse fatty infiltration of the liver. No evidence of gallstones. .Jayesh Chacko MD, Date Time Electronically viewed and signed by .Jayesh Chacko MD, on 10/28/2017 08:53 .S/
[2017-10-28 09:09] LABS: ALBUMIN 4.8 g/dl (3.3-4.9); ALBUMIN/GLOBULIN RATIO 1.45; BILIRUBIN,INDIRECT 2.2 mg/dl (0-1.1); BILIRUBIN,TOTAL 2.2 mg/dl (0.2-1.3); CALCIUM 9.4 mg/dl (8.4-10.2); CREATININE 0.64 mg/dl (0.61-1.24); POTASSIUM 3.9 mmol/L (3.5-5.1); TOTAL PROTEIN 8.1 g/dl (6.1-8.1)
[2017-10-28] MEDS ORDERED: RANI150T9 PO (09:21)
== END 2017-10-28 09:45 | disposition home or self-care (01) ==
LOC: FTE 07:08
DX: R10.11 Right upper quadrant pain (principal); J45.909 Unspecified asthma, uncomplicated
CPT/HCPCS: 76705; 80053; 85025; Z7502

== ENCOUNTER 2017-12-08 06:35 | Emergency (ER) | END 2017-12-08 12:02 | disposition home or self-care (01) ==

== ENCOUNTER 2018-01-02 09:33 | Emergency (ER) | END 2018-01-02 12:10 | disposition home or self-care (01) ==